=== PATIENT | male | born 1995 | race Asian ===

== ENCOUNTER 2019-11-05 00:15 | Emergency (ER) | payer OTHER ==
[2019-11-05 00:40] VITALS: BP 131/75
[2019-11-05] MEDS ORDERED: IBUPROFEN 800 MG TAB PO ONE (03:36)
--- NOTE | 2019-11-05 03:41 | Emergency Department Report ---
ED ENT HPI - General Chief complaint: Sore Throat Stated complaint: SORE THROAT Time Seen by Provider: 11/05/19 03:22 Source: patient Mode of arrival: Ambulatory Limitations: No Limitations - History of Present Illness Initial comments: 23-year-old male patient presents with complaints of sore throat x 1 week, worsening for the past 3 days. He denies any fever/chills/sweats, difficulty swallowing, cough, chest pain, rash, or headache. He rates his current pain as a 9/10 in severity. He reports history of a bilateral tonsillectomy due to recurrent strep pharyngitis. Patient states his symptoms feel similar to his past strep infections. - Related Data Previous Rx's Medication Instructions Recorded Last Taken Type Ibuprofen [Motrin 800 MG tab] 800 mg PO TID PRN #21 tablet 11/05/19 Unknown Rx Penicillin V Potassium 500 mg PO TID 10 Days #30 tablet 11/05/19 Unknown Rx Allergies Allergy/AdvReac Type Severity Reaction Status Date / Time No Known Allergies Allergy Unverified 11/05/19 00:39 ED Dental HPI - General Chief complaint: Sore Throat Stated complaint: SORE THROAT Time Seen by Provider: 11/05/19 03:22 Source: patient Mode of arrival: Ambulatory Limitations: No Limitations - Related Data Previous Rx's Medication Instructions Recorded Last Taken Type Ibuprofen [Motrin 800 MG tab] 800 mg PO TID PRN #21 tablet 11/05/19 Unknown Rx Penicillin V Potassium 500 mg PO TID 10 Days #30 tablet 11/05/19 Unknown Rx Allergies Allergy/AdvReac Type Severity Reaction Status Date / Time No Known Allergies Allergy Unverified 11/05/19 00:39 ED Review of Systems ROS: Stated complaint: SORE THROAT Other details as noted in HPI Constitutional: denies: chills, fever ENT: throat pain Respiratory: denies: cough, shortness of breath Cardiovascular: denies: chest pain Gastrointestinal: denies: nausea, vomiting, diarrhea Skin: denies: rash, lesions Neurological: denies: headache Hematological/Lymphatic: denies: swollen glands ED Past Medical Hx - Past Medical History Previous Medical History?: Yes Additional medical history: Aortic Valve Disorder - Surgical History Past Surgical History?: Yes Additional Surgical History: Tonsillectomy - Social History Smoking Status: Current Every Day Smoker Substance Use Type: None - Medications Home Medications: Home Medications Medication Instructions Recorded Confirmed Last Taken Type Ibuprofen [Motrin 800 MG tab] 800 mg PO TID PRN #21 tablet 11/05/19 Unknown Rx Penicillin V Potassium 500 mg PO TID 10 Days #30 tablet 11/05/19 Unknown Rx ED Physical Exam - General Limitations: No Limitations General appearance: alert, in no apparent distress - Head Head exam: Present: atraumatic, normocephalic - Eye Eye exam: Present: normal appearance. Absent: scleral icterus - Expanded ENT Exam Expanded Mouth exam: Absent: drooling, trismus, muffled voice Teeth exam: Present: dental tenderness # (17th molar), other (Erythema noted surrounding 17th molar tooth without abscess or significant swelling noted) Throat exam: Positive: other (Postpharyngeal erythema noted; tonsils are surgically absent bilaterally) - Neck Neck exam: Absent: lymphadenopathy (Anterior cervical lymph node tenderness without swelling noted) ED Course Vital Signs 11/05/19 00:33 Temperature 98.6 F Pulse Rate 78 Respiratory 18 Rate Blood Pressure 131/75 O2 Sat by Pulse 97 Oximetry ED Medical Decision Making - Radiology Data Patient here with complaints of sore throat x1 week. He has history of recurrent strep pharyngitis and tonsillectomy. No trismus, drooling, or muffled voice noted on exam. There is postpharyngeal erythema on exam and erythema and tenderness surrounding the 17th molar tooth. Pharyngitis versus dental infection. Vitals are normal and patient is well-appearing. Will treat with penicillin. I recommend patient follow-up with his ENT specialist within 3 to 5 days. Patient also informed he may need to follow-up with a dental specialist given possible dental infection. Strict return precautions were discussed in great detail with patient who verbalizes understanding. Critical care attestation.: If time is entered above; I have spent that time in minutes in the direct care of this critically ill patient, excluding procedure time. ED Disposition Clinical Impression: Dental infection Pharyngitis Qualifiers: Pharyngitis/tonsillitis etiology: other specified organisms Qualified Code(s): J02.8 - Acute pharyngitis due to other specified organisms Disposition: - TO HOME OR SELFCARE Is pt being admited?: No Condition: Stable Instructions: Pharyngitis (ED), Toothache (ED) Additional Instructions: Please follow-up with your your nose throat (ENT) provider. As discussed, you may also need to follow-up with your dental specialist for possible dental infection. If you develop any new or worsening symptoms including fever, swelling of the face/gums, difficulty opening your jaw, or increased pain, seek immediate emergency treatment. Prescriptions: Ibuprofen [Motrin 800 MG tab] 800 mg PO TID PRN #21 tablet PRN Reason: pain Penicillin V Potassium 500 mg PO TID 10 Days #30 tablet Referrals: PRIMARY CARE, [Primary Care Provider] - 3-5 Days Forms: Work/School Release Form(ED)
== END 2019-11-05 03:57 | disposition home or self-care (01) ==
LOC: ED 00:15
DX: J02.9 Acute pharyngitis, unspecified (principal); K04.7 Periapical abscess without sinus; F17.200 Nicotine dependence, unspecified, uncomplicated
CPT/HCPCS: 99282

== ENCOUNTER 2021-01-23 17:10 | Emergency (ER) | payer OTHER | END 2021-01-23 17:15 | disposition left against medical advice (07) | LOC: ED 17:10 | DX: N50.819 Testicular pain, unspecified (principal); Z53.21 Procedure and treatment not carried out due to patient leaving prior to being seen by health care provider ==